=== PATIENT | male | born 1975 | race Hispanic/Latino ===

== ENCOUNTER 2018-11-12 13:59 | Emergency (ER) | payer OTHER ==
[2018-11-12] MEDS ORDERED: ASPIRIN 325 MG TABLET ONE (14:06)
[2018-11-12 14:17] LABS: BASOPHILS % (AUTO) 0.7 % (0.0-5.0); EOSINOPHILS % (AUTO) 3.8 % (0.0-8.0); HEMATOCRIT 49.3 % (42-54); LYMPHOCYTES % (AUTO) 17.1 % (21.0-51.0); MEAN CORPUSCULAR HEMOGLOBIN 29.1 pg (27.0-33.0); MEAN CORPUSCULAR HGB CONC 33.2 g/dL (32.0-36.0); MEAN CORPUSCULAR VOLUME 87.7 fL (79-99); MONOCYTES % (AUTO) 6.8 % (3.0-13.0); NEUTROPHILS % (AUTO) 71.6 % (40.0-77.0); NUCLEATED RED BLOOD CELLS 0.1 % (0.0-0.19); PLATELET COUNT (AUTO) 187 K/uL (130-400); RED BLOOD CELL COUNT(AUTO) 5.62 MIL/uL (4.50-6.20); RED CELL DISTRIBUTION WIDTH 12.6 % (11.0-15.5); WHITE BLOOD COUNT (AUTO) 12.2 K/uL (4.8-10.8)
[2018-11-12 14:29] LABS: PARTIAL THROMBOPLASTIN TIME 32.6 SEC (26.3-35.5); PROTHROMBIN TIME 10.5 SEC (9.6-11.6)
[2018-11-12 14:56] LABS: B-TYPE NATRIURETIC PEPTIDE < 5 pg/mL (0-100)
[2018-11-12 15:05] LABS: APPEARANCE,URINE Clear (CLEAR); BILIRUBIN,URINE Negative (NEGATIVE); COLOR,URINE Yellow (YELLOW); GLUCOSE, URINE (UA) Negative (NEGATIVE); KETONES,URINE Trace mg/dL (NEGATIVE); LEUKOCYTE ESTERASE ,URINE Negative (NEGATIVE); NITRATE,URINE Negative (NEGATIVE); OCCULT BLOOD,URINE Negative (NEGATIVE); PROTEIN,URINE Negative (NEGATIVE)
[2018-11-12 15:10] LABS: AMPHET/METH SCREEN,URINE NEGATIVE (NEGATIVE); BARBITURATE SCREEN, URINE NEGATIVE (NEGATIVE); BENZODIAZEPINES SCREEN,URINE NEGATIVE (NEGATIVE); CANNABINOID SCREEN,URINE NEGATIVE (NEGATIVE); COCAINE SCREEN,URINE NEGATIVE (NEGATIVE); OPIATE SCREEN,URINE NEGATIVE (NEGATIVE); PHENCYCLIDINE SCREEN,URINE NEGATIVE (NEGATIVE)
[2018-11-12] MEDS ORDERED: KETOROLAC TROMETHAMINE 30MG/ML ONE (15:30)
== END 2018-11-12 15:53 | disposition home or self-care (01) ==
LOC: EDH 13:59
DX: R07.89 Other chest pain (principal); Z86.73 Personal history of transient ischemic attack (TIA), and cerebral infarction without residual deficits; Z90.89 Acquired absence of other organs; Z98.890 Other specified postprocedural states; Z72.0 Tobacco use
CPT/HCPCS: 36415; 71045; 80305; 81003; 82550; 83880; 84484; 85025; 85610; 85730; 93005; 96374; 99285; J1885

== ENCOUNTER 2019-03-24 17:04 | Emergency (ER) | payer OTHER | END 2019-03-24 18:24 | disposition home or self-care (01) | LOC: EDH 17:04 | DX: J06.9 Acute upper respiratory infection, unspecified (principal); Z86.73 Personal history of transient ischemic attack (TIA), and cerebral infarction without residual deficits; Z72.0 Tobacco use | CPT/HCPCS: 87804 ==

== ENCOUNTER 2019-06-21 22:52 | Emergency (ER) | payer OTHER ==
[2019-06-21 23:16] LABS: BASOPHILS % (AUTO) 0.4 % (0.0-5.0); EOSINOPHILS % (AUTO) 3.6 % (0.0-8.0); LYMPHOCYTES % (AUTO) 8.3 % (21.0-51.0); MEAN CORPUSCULAR HEMOGLOBIN 28.3 pg (27.0-33.0); MEAN CORPUSCULAR HGB CONC 31.7 g/dL (32.0-36.0); MEAN CORPUSCULAR VOLUME 89.2 fL (79-99); MONOCYTES % (AUTO) 13.4 % (3.0-13.0); NEUTROPHILS % (AUTO) 73.9 % (40.0-77.0); PLATELET COUNT (AUTO) 154 K/uL (130-400); RED BLOOD CELL COUNT(AUTO) 5.38 MIL/uL (4.50-6.20); RED CELL DISTRIBUTION WIDTH 11.7 % (11.0-15.5); WHITE BLOOD COUNT (AUTO) 7.2 K/uL (4.8-10.8)
[2019-06-21] MEDS ORDERED: ACETAMINOPHEN EXTRA STRENGTH 500 MG TABLET ONE (23:26)
[2019-06-21 23:27] LABS: CARBON DIOXIDE 30 mmol/L (21-32); CHLORIDE 101 mmol/L (101-111); GLOMERULAR FILTR. RATE CALC 86 mL/min (>60); GLUCOSE,RANDOM 94 mg/dL (70-105); POTASSIUM 3.9 mmol/L (3.5-5.1); SODIUM SERUM 139 mmol/L (136-145); UREA NITROGEN, BLOOD 13 mg/dL (7-18)
[2019-06-21 23:28] LABS: APPEARANCE,URINE Clear (CLEAR); BILIRUBIN,URINE Negative (NEGATIVE); COLOR,URINE Yellow (YELLOW); GLUCOSE, URINE (UA) Negative (NEGATIVE); KETONES,URINE Negative (NEGATIVE); LEUKOCYTE ESTERASE ,URINE Negative (NEGATIVE); NITRATE,URINE Negative (NEGATIVE); OCCULT BLOOD,URINE Negative (NEGATIVE); PH,URINE 6.5 (5.0-8.0); PROTEIN,URINE Negative (NEGATIVE)
[2019-06-21 23:30] LABS: RAPID GROUP A STREP NEGATIVE (NEGATIVE)
[2019-06-21 23:38] LABS: INR 0.92 (0.85-1.15); PARTIAL THROMBOPLASTIN TIME 30.3 SEC (26.3-35.5); PROTHROMBIN TIME 9.7 SEC (9.6-11.6)
[2019-06-21] MEDS ORDERED: CEFTRIAXONE SODIUM 1 GM ONE (23:38)
[2019-06-21] MEDS ORDERED: LEVOFLOXACIN 500 MG/D5W 100 ML 100 ML ONE (23:38)
[2019-06-21 23:39] LABS: ALANINE AMINOTRANSFERASE 26 U/L (12-78); ALBUMIN 3.5 g/dL (3.5-5.0); ASPARTATE AMINOTRANSFERASE 23 U/L (10-37); BILIRUBIN,TOTAL 0.4 mg/dL (0.2-1.0); CREATINE KINASE, TOTAL 103 U/L (21-232); MYOGLOBIN 38 ng/mL (10-92); TOTAL PROTEIN, SERUM 8.3 g/dL (6.0-8.3); TROPONIN I < 0.04 ng/mL (0.00-0.06)
[2019-06-21] MEDS ORDERED: SODIUM CHLORIDE 0.9% 100 ML IV ONE (23:39)
== END 2019-06-22 00:33 | disposition home or self-care (01) ==
LOC: EDH 22:52
DX: J09.X2 Influenza due to identified novel influenza A virus with other respiratory manifestations (principal); Z86.73 Personal history of transient ischemic attack (TIA), and cerebral infarction without residual deficits; Z98.890 Other specified postprocedural states; Z72.0 Tobacco use
CPT/HCPCS: 36415; 71045; 80053; 81003; 82550; 83605; 83874; 84145; 84484; 85025; 85610; 85730; 87040; 87088; 87804 ×2; 87880; 93005; 96374; 99285; J0696; J1956

== ENCOUNTER 2020-02-05 16:09 | Emergency (ER) | payer OTHER ==
[2020-02-05] MEDS ORDERED: KETOROLAC TROMETHAMINE 60 MG/2 ML VIAL ONE (16:57)
[2020-02-05] MEDS ORDERED: DEXAMETHASONE SOD PHOSPHATE 10MG/ML 1ML VIAL ONE (16:57)
== END 2020-02-05 17:36 | disposition home or self-care (01) ==
LOC: EDH 16:09
DX: S33.5XXA Sprain of ligaments of lumbar spine, initial encounter (principal); Z86.73 Personal history of transient ischemic attack (TIA), and cerebral infarction without residual deficits; X50.9XXA Other and unspecified overexertion or strenuous movements or postures, initial encounter; Y93.89 Activity, other specified; Y92.89 Other specified places as the place of occurrence of the external cause; Y99.8 Other external cause status
CPT/HCPCS: 96372 ×2; 99284; J1100; J1885

== ENCOUNTER 2024-09-24 03:26 | Emergency (ER) | payer BC, OTHER ==
[~2024-09-24] VITALS: Ht 177.8 cm; Wt 104.3 kg
--- NOTE | 2024-09-24 03:35 | NUR ---
UA CUP PROVIDED
--- NOTE | 2024-09-24 03:36 | NUR ---
REPORT TO MAGGY CHEEMA
[2024-09-24] MEDS ORDERED: hydroMORPHone 0.5 MG SYG (0.5MG/0.5ML) IVP ONE (04:30)
[2024-09-24 04:34] LABS: APPEARANCE,URINE CLEAR (CLEAR); BILIRUBIN,URINE NEGATIVE (NEGATIVE); COLOR,URINE COLORLESS (YELLOW); GLUCOSE, URINE (UA) NEGATIVE (NEGATIVE); KETONES,URINE NEGATIVE (NEGATIVE); LEUKOCYTE ESTERASE ,URINE NEGATIVE Leu/uL (NEGATIVE); NITRATE,URINE NEGATIVE (NEGATIVE); OCCULT BLOOD,URINE NEGATIVE (NEGATIVE); PH,URINE 6.5 (5.0-8.0); PROTEIN,URINE NEGATIVE (NEGATIVE); UROBILINOGEN,URINE 0.2 mg/dL (0.2-1.0)
[2024-09-24] MEDS: ketOROlac 15MG/ML VIAL (15MG/ML) IM ONE (04:41)
[2024-09-24] MEDS: hydroMORPHone 0.5 MG SYG (0.5MG/0.5ML) IM ONE (04:41)
[2024-09-24] MEDS: CYCLOBENZAPRINE HCL 10 MG TABLET PO ONE (04:41)
[2024-09-24 04:51] LABS: ADD UA MICROSCOPIC NO
--- NOTE | 2024-09-24 04:59 | ERN ---
ED Note History of Present Illness Stated Complaint: LOW BACK PAIN Chief Complaint: Back Pain-No Injury Time Seen by MD: 03:36 Dictation: This is a 49-year-old male who presented to the emergency room with a left-sided low back pain with the radiation to the left lower quadrant area along the flank. He stated that this started about a week ago with a slight pain however it was excruciating when he tried to sleep. He had hydrocodone at home that he could use as needed and he took the pain pill however the pain persisted. He stated that he took the hydrocodone 10/325 at 6:30 p.m. and he took MiraLax at 2:30 a.m. as he does have constipation he stated that for about 5 days he did not have a bowel movement and 2 days ago he had a small bowel movement. No burning dysuria or hematuria. He does give a history of a herniated disc in the past. He denied any bladder or bowel incontinence tingling numbness. There is no radiation of the left lower back pain along the gluteal area. Temperature 97.7 pulse 67 respirations 20 blood pressure 190/101 initially improved to 150 2/70 pulse oximetry 98% on room air Allergies: Coded Allergies: No Known Drug Allergies (Unverified Allergy, Unknown, 07/08/15) Past Medical History Past Medical History: Hypertension, Other Additional Past Medical Hx: HERNIATED DISC Surgical History: Tonsillectomy, Other Surgical History Other: NASAL Family History: Negative Social History: ETOH RN Note Reviewed/Agreed w/PFSH: Yes Review of System Dictation Constitutional: Negative for fever,chills, and weight loss Eyes: Negative for injury, pain,redness, and discharge ENT: Negative for injury,pain or swelling Cardiovascular: Negative for chest pain, palpitations, and edema Respiratory: Negative for shortness of breath, cough, and wheezing, Abdomen/GI: Negative for abdominal pain, nausea, vomiting, diarrhea, and constipation Back: Negative for injury and positive for left lower pain : Negative for injury, bleeding and discharge MS/Extremity: Negative for injury and deformity Skin: Negative for rash, and discoloration Neuro: Negative for headache, weakness, numbness, tingling, and seizure Psych: Negative for suicide ideation, homicidal ideation, and hallucinations Initial Vital Sign VS Vital Signs Date Time Temp Pulse Resp B/P (MAP) Pulse Ox O2 Delivery O2 Flow Rate FiO2 09/24/24 03:28 97.7 67 20 190/101 100 Room Air 09/24/24 05:04 0 21 Physical Exam Dictation General: awake, alert, NAD Head/Face: Normocephalic, atraumatic Eyes: PERRL, EOMI, vision at baseline ENT: oral cavity clear, TMs clear, no signs of infection Neck: Trachea midline, supple, no nuchal rigidity Cardiovascular: RRR, normal S1/S2, No MRGs, no JVD Respiratory: CTAB, no respiratory distress, No rales or wheezes Abdomen: Soft, non-tender, non-distended, normal bowel sounds, no guarding or rebound. Left lower paraspinal muscle area tender to touch Skin: Warm, dry, normal turgor, no rash MS/Extremity: Pulses equal, no cyanosis, neurovascular intact, FROM Neuro: COAx4, GCS 15, strength 5/5, CN 2-12 intact, normal cerebellar exam, normal gait, Psych: Normal behavior, mood, and affect normal Extremities-trace edema without any palpable cords, Homans sign is negative Results (Laboratory/Radiology) Laboratory/Radiology Laboratory Tests Test 09/24/24 04:24 Urine Color COLORLESS (YELLOW) Urine Appearance CLEAR (CLEAR) Urine pH 6.5 (5.0-8.0) Urine Specific Curtis 1.012 (1.001-1.031) Urine Protein NEGATIVE mg/dL (NEGATIVE) Urine Glucose (UA) NEGATIVE mg/dL (NEGATIVE) Urine Ketones NEGATIVE mg/dL (NEGATIVE) Urine Occult Blood NEGATIVE (NEGATIVE) Urine Nitrate NEGATIVE (NEGATIVE) Urine Bilirubin NEGATIVE mg/dL (NEGATIVE) Urine Urobilinogen 0.2 mg/dL (0.2-1.0) Urine Leukocyte Esterase NEGATIVE Gayle/uL Labs Reviewed?: Yes ED Course ED Course Orders Procedure Category Date Status Time Ketorolac PHA 09/24/24 Complete Tromethamine 15mg/Ml 04:30 Cyclobenzaprine Hcl PHA 09/24/24 Complete (Cyclobenzaprine Hcl 04:30 Hydromorphone 0.5mg PHA 09/24/24 Complete Syg (Dilaudid 0.5mg 04:30 Urinalysis Profile LAB 09/24/24 Complete 04:21 Hydromorphone 0.5mg PHA 09/24/24 Complete Syg (Dilaudid 0.5mg 04:30 Ct Abdomen/Pelvis W/O CT 09/24/24 Taken Contrast 04:53 Current Medications Medications (Trade) Dose Ordered Sig/Greer Route PRN Reason Start Time Stop Time Status Last Admin Dose Admin Cyclobenzaprine HCl (Cyclobenzaprine HCl) 10 mg ONCE ONCE PO 09/24/24 04:30 09/24/24 04:31 DC 09/24/24 04:41 Hydromorphone HCl (DiLAUDid 0.5MG INJ) 0.5 mg ONCE ONCE IM 09/24/24 04:30 09/24/24 04:33 DC 09/24/24 04:41 Hydromorphone HCl (DiLAUDid 0.5MG INJ) 0.5 mg ONCE ONCE IVP 09/24/24 04:30 09/24/24 04:31 DC Ketorolac Tromethamine (toRADol) 15 mg ONCE ONCE IM 09/24/24 04:30 09/24/24 04:31 DC 09/24/24 04:41 Vital Signs Date Time Temp Pulse Resp B/P (MAP) Pulse Ox O2 Delivery O2 Flow Rate FiO2 09/24/24 05:44 59 18 157/90 97 Room Air* 0 21 09/24/24 05:04 58 18 170/90 99 Room Air* 0 21 09/24/24 03:28 97.7 67 20 190/101 100 Room Air We will perform diagnostic labs, advanced imaging and administer medications according to the patient's complaint. Once the results are available, will review and personally interpreted the labs to rule out any acute life- threatening emergency the trach require immediate intervention and treatment. I will then re-evaluate the patient after treatment and diagnostic exams have return to determine whether the patient requires any further testing, can safely be discharged home or need further admission to hospital for additional treatment and evaluation. Urinalysis was unremarkable for any hematuria or infection. CT scan of the abdomen and pelvis is pending 6:[address] scan of the abdomen and pelvis did not show any acute intra- abdominal abnormality no nephrolithiasis no hydronephrosis normal appendix Patient needs to follow up with his primary care physician and get a referral to back specialist orthopedics spine Counseling done on opioid use and abuse and respiratory depression including and I educated him on not getting opioid prescriptions from multiple physicians as he is already taking hydrocodone 10 mg. Medical Decision Making MDM MDM: Differential diagnosis: Lumbago, lumbar radiculopathy, renal colic, paraspinal muscle spasm, constipation Rationale: Tests considered and ordered secondary to shared decision making in clude: Previous outside records reviewed: Old ER visits. Risk of complication and/or morbidity or mortality of patient management: None Medications-Per medication reconciliation Need for hospitalization: Patient does not meet criteria for hospitalization. Need for emergency major/minor surgery: No There are no social concerns with this patient. Prescription drug management Prescriptions will include symptomatic care Patient's prior external medical records from other ER visits were reviewed by me as indicated. Prior testing and results from previous visits were reviewed. Prior tests were taken into account with medical decision making and resource utilization, independent historian/historians were used to obtain complete medical history. I independently interpreted the test that were performed, results were reviewed by me and considered findings on radiology if ordered. Medical management and examination interpretation discussions were had by me with other qualified healthcare professionals as indicated for the patient's care. Problem List Problem List: (1) Chronic back pain (2) Opioid dependence DX & DISP Disposition: Discharge Departure Impression: Primary Impression: Chronic back pain Additional Impression: Opioid dependence Condition: Stable Scripts Prednisone (Prednisone) 20 Mg Tablet 1 TAB PO AD for 6 Days, #14 TAB 0 Refills TAKE 1 TAB BY MOUTH THREE TIMES PER DAY X3 DAYS, THEN TAKE 1 TAB BY MOUTH TWICE A DAY X2 DAYS, THEN TAKE 1 TAB BY MOUTH ONCE A DAY X1 DAY. Prov: TRAVIS PEARSON MD 09/24/24 Cyclobenzaprine HCl (Cyclobenzaprine HCl) 10 Mg Tablet 1 TAB PO TID for muscle spasms for 3 Days, #9 TAB 0 Refills Prov: TRAVIS PEARSON MD 09/24/24 Additional Instructions: Patient and the caregiver have been informed of all the diagnostic tests and the imaging conducted during the today's visit to the emergency room and has verbalized understanding of the results I have personally reviewed and interpreted all diagnostic exams performed here in the ER today as well as the vital signs documented by the nursing staff. The patient is now being discharged to home and should follow up with the primary care physician or the specialist as directed by the ER staff. Follow-up with primary care provider in 1 to 2 days. Take medications as directed here in the emergency room. Okay to continue home medications unless otherwise discussed during your visit in the emergency room today. Return to your nearest emergency room if symptoms worsen or if there is no improvement. Call 911 if you need immediate assistance. Take Tylenol or Motrin [id number] as needed and if no contraindications are present. Increase oral hydration. A wound culture or urine culture was ordered here in the emergency room department please follow-up with primary care provider and advise them to get repeat ports from our facility. If you had any Jm wrap/splints that were applied here, please do not remove them until you see your primary care or specialty. And has a follow-up appointment with Dr. Grady his primary care physician and to get referral for pain management Referrals: SONJA GRADY MD (PCP) TRAVIS PEARSON MD Sep 24, 2024 04:58
[2024-09-24] MEDS ORDERED: CYCL-309 PO (06:46)
[2024-09-24] MEDS ORDERED: PRED20TA3 PO (06:46)
[2024-09-24] MEDS: Solu-medROL 125MG VIAL IM ONE (07:00)
[2024-09-24 07:05] VITALS: BP 152/79; PULSE 78; RESP 18; TEMP 98.2; O2SAT 98
--- NOTE | 2024-09-24 08:17 | HMCIMG ---
CT ABDOMEN WITHOUT CONTRAST. CT PELVIS WITHOUT CONTRAST. INDICATION: Severe right flank pain TECHNIQUE: Routine transaxial imaging using 5 mm slice thickness through the abdomen and pelvis without the administration of IV contrast. Thin slice reconstructions are also provided. Coronal and sagittal reformatted images acquired for interpretation. CT was performed with one or more of the following dose reduction techniques: Automated exposure control, adjustment of the mA and/or kV according to patient size, or use of iterative reconstruction technique. COMPARISON: None FINDINGS: ON NONCONTRAST IMAGING: ABDOMEN: Heart size is normal. Visible lung bases are clear. No abnormal renal calcifications, hydronephrosis, perinephric inflammation, or proximal hydroureter detected. 1.9 cm simple cyst anteriorly at the midportion of the right kidney. The liver is normal in size and smooth in contour without biliary duct dilation. The spleen is normal in size and attenuation. The gallbladder appears normal. The pancreas appears normal without pancreatic duct dilation. The adrenal glands appear normal. No significant abdominal, retrocrural or retroperitoneal adenopathy noted. No evidence for intra-abdominal free air or organized fluid collection. No aortic aneurysmal dilation identified. PELVIS: No abnormal calcifications within the urinary bladder or distal ureters. No evidence for free air or organized pelvic fluid collection. No significant pelvic adenopathy detected. Moderate stool burden. Terminal ileum appears unremarkable. The appendix appears normal. Mild thoracolumbar spondylosis. IMPRESSION: No evidence for any acute intra-abdominal or pelvic process, including no evidence for urolithiasis. Additional minor findings and pertinent negatives as reported.
== END 2024-09-24 07:06 | disposition home or self-care (01) ==
LOC: EDH 03:26
DX: G89.29 Other chronic pain (principal); M54.50 Low back pain, unspecified; F11.20 Opioid dependence, uncomplicated; I10 Essential (primary) hypertension; Z90.89 Acquired absence of other organs; Z98.890 Other specified postprocedural states
CPT/HCPCS: 99284; 74176; 81003; 96372 ×3; J1885; J2919; J1171